=== PATIENT | male | born 2000 | race Two or more races ===

== ENCOUNTER 2025-06-08 09:14 | Emergency (ER) | payer OTHER ==
[~2025-06-08] VITALS: Ht 175.3 cm; Wt 103.4 kg
[2025-06-08 11:03] LABS: BASO # 0.0 10^3/uL (0.0-0.2); BASO % 0.3 % (0.0-1.0); EOS # 0.2 10^3/uL (0.0-0.5); EOS % 2.1 % (0.0-3.0); LYMPH # 2.4 10^3/uL (1.5-5.0); LYMPH % 31.1 % (24.0-44.0); MONO # 0.7 10^3/uL (0.0-0.8); MONO % 9.1 % (2.0-8.0); NEUTROPHILS # 4.3 10^3/uL (1.5-8.5); NEUTROPHILS % 57.0 % (36.0-66.0); PLATELET COUNT, AUTOMATED 247 10^3/uL (150-450)
[2025-06-08] MEDS: KETOROLAC 30 MG/ML 1 ML VIAL IV ONE (11:03)
[2025-06-08 11:21] LABS: KETONE, URINE AUTO RFX NEGATIVE (NEGATIVE); LEUKOCYTE ESTERASE UR AUTO RFX NEGATIVE (NEGATIVE); MUCUS, URINE RFX SMALL (NEGATIVE); NITRITE, URINE AUTO RFX NEGATIVE (NEGATIVE); RBC, URINE AUTO RFX 0 /HPF (0-3); SQUAM EPITHELIAL CELL UR AURFX 1 /HPF (0-6); WBC, URINE AUTO RFX 1 /HPF (0-3)
[2025-06-08 11:35] LABS: ALT/SGPT 25 U/L (7.0-40); AST/SGOT 25 U/L (<34); CALCIUM LEVEL 9.0 MG/DL (8.5-10.1); CARBON DIOXIDE LEVEL 28 MMOL/L (20-31); CHLORIDE LEVEL 104 MMOL/L (98-107); CREATININE FOR GFR 0.72 MG/DL (0.70-1.30); GLOMERULAR FILTRATION RATE > 90.0 (>60); POTASSIUM SERUM 4.4 MMOL/L (3.5-5.1); SODIUM LEVEL 141 MMOL/L (136-145)
[2025-06-08] MEDS ORDERED: ISOVUE-370 76% 100 ML VIAL As Ordered ONE (12:18)
[2025-06-08 13:30] VITALS: BP 122/57; TEMP 97.4; O2SAT 98
== END 2025-06-08 13:42 | disposition home or self-care (01) ==
LOC: M ED 09:14
DX: R10.9 Unspecified abdominal pain (principal)
CPT/HCPCS: 73502; 74177; 80048; 80076; 81001; 83690; 85025; 96374; 99284; J1885; Q9967